=== PATIENT | male | born 1985 | race Two or more races ===

== ENCOUNTER 2017-10-13 03:16 | Emergency (ER) | payer SELFPAY ==
[~2017-10-13] VITALS: Ht 172.7 cm; Wt 72.0 kg
[2017-10-13 03:35] VITALS: BP 145/95
[2017-10-13] MEDS ORDERED: DiphenhydrAMINE HCL 25 MG CAPSULE PO ONE (03:45)
[2017-10-13] MEDS ORDERED: PredniSONE 20 MG TABLET PO ONE (03:45)
== END 2017-10-13 04:03 | disposition home or self-care (01) ==
LOC: EMS 03:17
DX: L50.9 Urticaria, unspecified (principal); F12.90 Cannabis use, unspecified, uncomplicated
CPT/HCPCS: 99283; J7512